=== PATIENT | female | born 2000 | race Caucasian/White ===

== ENCOUNTER → 2018-04-27 09:04 | Outpatient (CLI) | payer MEDICAID ==
[~2018-04-27 09:04] MED LIST: DDAVP0.1 MG PO; IBUPROFEN800 MG PO; LEXAPRO20 MG PO
== END | disposition home or self-care (01) ==
LOC: D.RAD 09:04
DX: Z87.09 Personal history of other diseases of the respiratory system (principal)

== ENCOUNTER 2018-05-16 21:19 | Emergency (ER) | payer SELFPAY ==
[~2018-05-16] VITALS: Ht 157.5 cm; Wt 158.8 kg
[2018-05-16 21:25] VITALS: Ht 157.5 cm; Wt 158.8 kg
[2018-05-16] MEDS ORDERED: LEXAPRO20 MG PO (21:27)
[2018-05-16] MEDS ORDERED: DDAVP0.1 MG PO (21:27)
[2018-05-16] MEDS ORDERED: IBUPROFEN800 MG PO (22:28)
[2018-05-16 22:40] VITALS: BP 137/84
== END 2018-05-16 22:40 | disposition home or self-care (01) ==
LOC: D.ER 21:19
DX: S29.012A Strain of muscle and tendon of back wall of thorax, initial encounter (principal); X58.XXXA Exposure to other specified factors, initial encounter; Y93.89 Activity, other specified; Y92.89 Other specified places as the place of occurrence of the external cause

== ENCOUNTER 2018-06-15 22:10 | Emergency (ER) | payer SELFPAY ==
[~2018-06-15] VITALS: Ht 157.5 cm; Wt 160.0 kg
[2018-06-15 22:12] VITALS: Ht 157.5 cm; Wt 160.0 kg
[2018-06-15] MEDS ORDERED: NORCO 7.5/325 T1 TA1 PO (22:53)
[2018-06-15 23:10] VITALS: BP 126/71
== END 2018-06-15 23:10 | disposition home or self-care (01) ==
LOC: D.ER 22:10
DX: S99.912A Unspecified injury of left ankle, initial encounter (principal); X50.1XXA Overexertion from prolonged static or awkward postures, initial encounter; Y93.01 Activity, walking, marching and hiking; Y92.410 Unspecified street and highway as the place of occurrence of the external cause

== ENCOUNTER 2018-09-20 20:26 | Emergency (ER) | payer SELFPAY ==
[~2018-09-20] VITALS: Ht 157.5 cm; Wt 159.1 kg
[~2018-09-20 20:26] MED LIST changes: +NORCO 7.5/325 T1 TA1 PO
[2018-09-20 20:42] VITALS: Ht 157.5 cm; Wt 159.1 kg
[2018-09-20 21:26] LABS: BASOPHILS 0.1 % (0-2); EOSINOPHILS 1.1 % (0-7); HEMATOCRIT 36.7 % (36.0-48.0); HEMOGLOBIN 12.3 g/dL (12-16); IMMATURE GRANULOCYTES 0.3 % (0-5); LYMPHOCYTES 33.8 % (15-50); MCH 28.3 pg (26.0-34.0); MCHC 33.5 g/dL (31.0-37.0); MCV 84.6 fL (80.0-100.0); MEAN PLATELET VOLUME 9.8 fL (7.4-10.4); MONOCYTES 5.8 % (2-11); NEUTROPHILS 58.9 % (40-80); PLATELET COUNT 241 10x3/uL (130-400); RBC 4.34 10x6/uL (4.00-5.40); RDW 13.5 % (11.5-14.5); WBC 11.1 10x3/uL (4.8-10.8)
[2018-09-20 22:16] LABS: ALBUMIN 3.4 g/dL (3.4-5.0); ALKALINE PHOSPHATASE 90 U/L (46-116); ALT (SGPT) 24 U/L (10-68); BILIRUBIN - TOTAL 0.22 mg/dL (0.2-1.3); CALC OSMOLALITY 282 mosm/kg (275-300); CARBON DIOXIDE 29.5 mmol/L (21.0-32.0); CHLORIDE - SERUM 104 mmol/L (98-107); CREATININE - SERUM 0.8 mg/dL (0.6-1.3); GLUCOSE 124 mg/dL (74-106); POTASSIUM - SERUM 4.3 mmol/L (3.5-5.1); PROTEIN - SERUM 6.9 g/dL (6.4-8.2); SODIUM 142 mmol/L (136-145); UREA NITROGEN 10 mg/dL (7-18); eGFR NON AFRICAN AMERICAN > 90 mL/min (90-120)
[2018-09-20 23:02] VITALS: BP 120/80
== END 2018-09-20 23:02 | disposition home or self-care (01) ==
LOC: D.ER 20:26
PROVIDERS: Family Medicine
DX: R19.5 Other fecal abnormalities (principal)